=== PATIENT | female | born 1945 | race Caucasian/White ===

== ENCOUNTER → 2020-04-07 11:17 | Outpatient (CLI) | payer MEDICARE, OTHER, SELFPAY ==
[2018-03-04 09:38] VITALS: BMI 26.4
--- NOTE | 2020-04-07 11:32 | RAD_ITS ---
STUDY: X-RAY - LUMBAR SPINE REASON FOR EXAM: Female, 75 years old. PAIN S/P FALL, PAIN RADIATES TO BILATERAL HIPS TECHNIQUE: 5 view(s) of the lumbar spine were obtained including oblique views. COMPARISON: None FINDINGS: Normal lumbar lordosis. There is a minimal levoscoliosis of the lumbar spine. Minimal anterior listhesis of L4 on L5 and L5-S1 most likely secondary to facet joint osteoarthritis. Normal vertebral bodies and endplates. There is multi-level degenerative disc disease with multi-level disc space narrowing. The soft tissue structures are unremarkable. RAD/L/S Spine Min 4 Views IMPRESSION: Degenerative changes of the spine, as detailed above. Electronically Signed: Anjel Quintana, at 15:20 EDT , Service support ,
== END ==
PROVIDERS: PCP Family Medicine; Referring Provider Family Medicine; Visit Provider Family Medicine
DX: M54.9 Dorsalgia, unspecified (principal)
CPT/HCPCS: 72110

== ENCOUNTER → 2020-04-12 09:26 | Outpatient (CLI) | payer MEDICARE, OTHER, SELFPAY ==
[2018-03-04 09:38] VITALS: BMI 26.4
[2020-04-12 12:41] LABS: Vitamin D,25 Hydroxy 58.6 ng/mL
[2020-04-12 12:48] LABS: Absolute Lymphocyte Count 1.58 X10^3/uL (0.83-4.51); Absolute Neutrophil Count 1.9 X10^3/uL (2.0-7.7); Basophil# 0.03 X10^3/uL; Basophil% 0.7 % (0-1); Eosinophil# 0.14 X10^3/uL; Eosinophils% 3.3 % (0-5); Hematocrit 35.1 % (37-47); Hemoglobin 11.1 g/dL (12.0-15.0); Lymphocyte # 1.58 X10^3/ul (4.0); Lymphocyte % 37.8 % (19-41); Mean Corp Hgb Conc 31.6 g/dL (32-36); Mean Corpuscular Hgb 29.8 pg (27.0-32.0); Mean Corpuscular Volume 94.4 fL (81-99); Monocyte# 0.57 X10^3/uL; Monocyte% 13.6 % (0-10); NRBC Flagged by Analyzer 0 % (0-5); Neutrophil # 1.86 X10^3/uL (2.7-7.7); Neutrophil % 44.6 % (47-70); Platelet Count 310 K/mm3 (150-450); RBC Distribution Width CV 13.7 % (11.6-14.6); RBC Distribution Width SD 47.3 fl (35.1-43.9); Red Blood Count 3.72 M/mm3 (4.2-5.4); White Blood Count 4.2 K/mm3 (4.4-11.0)
[2020-04-12 12:59] LABS: ALB/GLOB Ratio 1.1 RATIO (0.9-2.4); AST(SGOT) 20 U/L (15-37); Alanine Aminotransfer ALT/SGPT 22 U/L (13-56); Albumin, Serum 3.8 g/dL (3.2-5.0); Alkaline Phosphatase 44 U/L (45-117); Anion Gap 6 (5-15); BUN 11 mg/dL (7-18); BUN/Creat Ratio 14.8 RATIO (10-20); Calcium,Total 8.8 mg/dL (8.5-10.1); Chloride 102 mmol/L (98-107); Cholesterol 210 mg/dL (200); Creatinine, Serum 0.74 mg/dL (0.55-1.02); EST Glomerular Filtration Rate 82 mL/min (>60); Est Glom Filt Rate - Afr Amer 99 mL/min (>60); Ferritin 14 ng/mL (8-252); Globulin 3.6 g/dL (2.2-4.2); Glucose 94 mg/dL (74-106); High Density Lipoprotein 73 mg/dL; Magnesium 2.5 mg/dL (1.6-2.6); Potassium 3.7 mmol/L (3.5-5.1); Protein, Total 7.4 g/dL (6.4-8.2); Sodium Level 136 mmol/L (136-145); Thyroid Stim Hormone (TSH) 8.63 uIU/mL (0.358-3.74); Triglycerides 72 mg/dL; Very Low Density Lipoprotein 14 mg/dL (5-40)
== END ==
PROVIDERS: PCP Family Medicine; Referring Provider Family Medicine; Visit Provider Family Medicine
DX: E78.5 Hyperlipidemia, unspecified (principal); K21.9 Gastro-esophageal reflux disease without esophagitis; M81.0 Age-related osteoporosis without current pathological fracture; E03.9 Hypothyroidism, unspecified; Z98.890 Other specified postprocedural states
CPT/HCPCS: 36415; 80053; 80061; 82306; 82728; 83735; 84443; 85025

== ENCOUNTER → 2021-02-01 15:51 | Outpatient (CLI) | payer MEDICARE, OTHER, SELFPAY ==
[2021-01-21 10:15] VITALS: BMI 29.5
--- NOTE | 2021-02-01 15:55 | RAD_ITS ---
STUDY: X-RAY - RIGHT WRIST REASON FOR EXAM: Female, 76 years old. PAIN TECHNIQUE: 3 view(s) of the wrist were obtained. COMPARISON: None. FINDINGS: Normal visualized distal radius and ulna. Normal radiocarpal articulation. Normal distal radioulnar articulation. Normal carpal bones. Normal carpal articulations. Normal carpometacarpal articulation of the thumb. Normal second through fifth carpometacarpal articulations. Normal visualized metacarpal bones. The soft tissue structures are unremarkable. RAD/Wrist min 3 Views IMPRESSION: Normal x-ray examination of the wrist. Electronically Signed: Onesimo Baez MD at 10:03 EDT Tel , Service support ,
== END ==
PROVIDERS: PCP Family Medicine; Referring Provider Family Medicine; Visit Provider Family Medicine
DX: M25.531 Pain in right wrist (principal)
CPT/HCPCS: 73110

== ENCOUNTER 2021-04-17 10:30 | Outpatient (RCR) | payer MEDICARE, OTHER, SELFPAY ==
[2021-01-21 10:15] VITALS: BMI 29.5
--- NOTE | 2021-03-23 10:11 | HP.OTEVAL ---
Patient's Visit Information SARAH KAISER is a 76 year old F, referred to Occupational Therapy by Dr. Aaron Brooks MD, with a diagnosis of R De Quervain's syndrome. Date of Evaluation: 03/21/21 Occupational Therapist: Phyllis Heredia, OTR/L, CHT - Subjective This 76/F was seen for initial OT eval today for De Quervain's syndrome in her R thumb. She lives in [place] most of the year, but from January-May, she lives in an in [place]. 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 She reported that ADLs and IADLs are going fine, but she has issues hooking her bra and curling her hair. She also reported that there is increased pain when she tried to cut food, tries to scoop heavy foods, and she has modified how she is eating with her R hand so there is no pain. 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 She is R handed and thumb wraps when she writes, so she is not able to write for very long without pain. She noticed increased swelling at her forearm and wrist and increased pain with touch and certain fabrics (it is a burning feeling). She enjoys reading on her [place] and has already made modifications with [place] stand so she does not hold it for very long and cause pain. - Pain R CMC/Wrist/FA 0 Pain Intensity Range: 4, 6 - ROM Forearm: R: WFL L:WFL Wrist: R: 50*/WFL L: 50*/WFL Opposition: 10 ROM Comments: Pt indicated pain with wrist extension. - Strength Educational Program Director: R: 28# L: 32# Lateral Pinch: R: 10#, L: 13# Tripod Pinch: R: 12#, L: 13# Strength Comments: Pt indicated pain with Lateral pinch - Edema Other: Mid FA R: 7 inches, L: 6.5 inches. 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 by d/c. Goal:: pt will self-report pain no greater than a 1/10 with use to return to leisure activities by d/c. Goal:: Pt will demonstrate a decrease in R middle FA edema by at at least 0.25 inches by d/c. Goal:: Pt will self-report a decrease in sensitivity in R middle FA to be able to wear hooded sweatshirts again without burning sensation by d/c. - Rehabilitation General Assessment: Pt demonstrated an increase in pain, an increase in edema in middle FA, a decrease in strength in her R hand, and a positive sign for De Quervain's. Pt would benefit from skilled OT services 1-2 x a week for 6 weeks to decrease pain, edema, increase strength, and to make adjustments to Thumb Spica splint as needed. Today, therapist educated pt on safe picking and holding techniques to not exacerbate her pain and fabricated a thumb spica splint to be worn for heavy work and sleeping. Pt understood and agreed with POC. Therapy session directly supervised and doc. approved by Phyllis Heredia OTR/L,CHT Rehabilitation Potential: Good - Anticipated Interventions A/AAROM/PROM, Strengthening, Triggerpoint Release, Modalities, Orthoses, Joint Protection/Energy Conservation, Home Program - Visit Plan Frequency: 1-2x /Week Duration: 6 Weeks TEXT: Thank you for the opportunity to evaluate your patient. For Medicare and Medicare HMO plans, please review the plan of care and approve it. It will need to be FAXED BACK to us at [phone] for Medicare purposes. Please let me know if there are questions or concerns regarding this plan of care. Physician Signature: Date:
--- NOTE | 2021-04-17 10:54 | HP.OTDCSUM ---
It has been my pleasure to treat SARAH KAISER under orders from Dr. Aaron Brooks MD, for the diagnosis of R De Quervain's syndrome for a total of 7 visit(s). Please see the following information for a summary of their discharge status. % Improvement: 50 Objective/Function: right print color operator initial was 28# increase to 40#. left print color operator initial was 32# increase 30#. right lateral pinch 4# a decrease from 10#. right tripod pinch 4# a decrease from 12#. right wrist 60/50 pain at left wrist 65/60. pt does have pain with movement- Patient Goals: Regain Strength, Decrease Pain, Decrease Swelling/Stiffness, Use Hand/Wrist/Arm Normally Again, Be More Independent in ADLS Goal:: Pt will demonstrate an increase in R print color operator strength by at least 10# to return to PLOF with ADLs and IADLs. by d/c. Goal:: pt will self-report pain no greater than a 1/10 with use to return to leisure activities by d/c. Goal:: Pt will demonstrate a decrease in R middle FA edema by at at least 0.25 inches by d/c. Goal:: Pt will self-report a decrease in sensitivity in R middle FA to be able to wear hooded sweatshirts again without burning sensation by d/c. Plan: D/C Discharge Comments: pt was seen for 7 OT visit where we used custom orthosis to provide support and protection followed with ed. on wrist ergon. and ad. ways to avoid stress on tendons- pt reports she has made changed with her ADLs and IADls to prevent grabbing items with wrist flexed. However pt continues to struggle with pain limiting her ADLs. At this time therapy is rec. return to for possible injection. If there are questions or concerns regarding this patient's occupational therapy, please fell free to call me at [phone]. Thank you for the referral of this patient. Sincerely, Phyllis Heredia, OTR/L, CHT
== END 2021-04-17 19:00 | disposition home or self-care (01) ==
LOC: OT 10:30
PROVIDERS: PCP Family Medicine; Referring Provider Family Medicine; Visit Provider Family Medicine
DX: M65.4 Radial styloid tenosynovitis [de Quervain] (principal)
CPT/HCPCS: 97035; 97140; 97165; 97530; 97760

== ENCOUNTER → 2023-01-07 | Outpatient (CLI) | payer MEDICARE, OTHER, SELFPAY | END | disposition home or self-care (01) | LOC: RAD 12:47 | PROVIDERS: PCP Family Medicine; Referring Provider Family Medicine; Visit Provider Family Medicine | DX: S00.83XA Contusion of other part of head, initial encounter (principal) ==

== ENCOUNTER → 2023-01-07 | Outpatient (CLI) | payer MEDICARE, OTHER, SELFPAY ==
--- NOTE | 2023-01-07 12:37 | RAD_ITS ---
EXAM: XR FACE COMPLETE, 3 OR MORE VIEWS CLINICAL INDICATION: facial contusion TECHNIQUE: Frontal, lateral and oblique views of the face. COMPARISON: No relevant prior studies available. FINDINGS: BONES/JOINTS: Unremarkable. No displaced fracture. No subluxation. No sclerotic or destructive changes observed. SINUSES: No acute findings. SOFT TISSUES: Unremarkable. No soft tissue swelling or gas. No radiopaque foreign body. RAD/Facial Bones min 3 Views IMPRESSION: Negative facial bone series. Electronically Signed: Raul Acuña MD at 23:29 EDT ,
== END | disposition home or self-care (01) ==
LOC: MTRAD 12:35
PROVIDERS: PCP Family Medicine; Referring Provider Family Medicine; Visit Provider Family Medicine
DX: S00.83XA Contusion of other part of head, initial encounter (principal)
CPT/HCPCS: 70150